=== PATIENT | male | born 1990 | race Caucasian/White ===

== ENCOUNTER 2016-07-30 20:36 | Emergency (ER) | payer BC, OTHER ==
[2016-07-30] MEDS ORDERED: Sodium Chloride 0.9% 2.5 ML Syringe FLUSH PRN ×2 (20:44)
[2016-07-30] MEDS ORDERED: Sodium Chloride 0.9% 10 ML Syringe FLUSH PRN ×2 (20:44)
--- NOTE | 2016-07-30 20:55 | EDM.PDOC ---
ED HISTORY OF PRESENT ILLNESS - General Stated Complaint: CHEST PAIN Time Seen by Provider: 07/30/16 20:40 Source of Information: Reports: Patient History Limitations: Reports: No limitations - History of Present Illness INITIAL COMMENTS - FREE TEXT/NARRATIVE: HISTORY AND PHYSICAL: History of present illness: [] 26-year-old male with a history of thoracic aortic aneurysm treated surgically which he had a family history of sister was also treated similarly, now presents to the emergency department complaining of right-sided pleuritic chest pain onset prior to arrival while exercising. She denies chest pressure or nausea vomiting diaphoresis or shortness of air. He says his pain is reproducible with a deep breath. Right-sided and sharp. He said no productive cough fevers chills sweats or shaking chills patient is not a smoker has no known hypertension cholesterol diabetes or family history of coronary artery disease Review of systems: As per history of present illness and below otherwise all systems reviewed and negative. Past medical history: As per history of present illness and as reviewed below otherwise noncontributory. Surgical history: As per history of present illness and as reviewed below otherwise noncontributory. Social history: No reported history of drug or alcohol abuse. Family history: As per history of present illness and as reviewed below otherwise noncontributory. Physical exam: HEENT: Atraumatic, normocephalic, pupils reactive, negative for conjunctival pallor or scleral icterus, mucous membranes moist, throat clear, neck supple, nontender, trachea midline. Lungs: Clear to auscultation, breath sounds equal bilaterally, chest nontender. Heart: S1S2, regular, negative for clicks, rubs, or JVD. Abdomen: Soft, nondistended, nontender. Negative for masses or hepatosplenomegaly. Negative for costovertebral tenderness. Pelvis: Stable nontender. Genitourinary: Deferred. Rectal: Deferred. Extremities: Atraumatic, negative for cords or calf pain. Neurovascular unremarkable. Neuro: Awake, alert, oriented. Cranial nerves II through XII unremarkable. Cerebellum unremarkable. Motor and sensory unremarkable throughout. Exam nonfocal. Diagnostics: [] Therapeutics: [] Impression: [] Plan: [] Definitive disposition and diagnosis as appropriate pending reevaluation and review of above. - Related Data Allergies/ADRs: Allergies Allergy/AdvReac Type Severity Reaction Status Date / Time No Known Allergies Allergy Verified 07/30/16 20:38 Home Meds: Home Meds . [No Known Home Meds] 11/28/14 [History] Past Medical History Other Cardiovascular History: AAA 2010. Other Respiratory History: childhood asthma - Past Surgical History Other Cardiovascular Surgeries/Procedures: AAA stent 2010. Social & Family History - Tobacco Use Smoking Status *Q: Never Smoker - Recreational Drug Use Recreational Drug Use: No ED ROS GENERAL - Review of Systems Review Of Systems: See Below (Per history of present illness) ED EXAM, GENERAL - Physical Exam Exam: See Below (Per history of present illness) Course - Vital Signs Text/Narrative:: Signs and symptoms consistent with pleuritic chest pain. Well-appearing patient unremarkable vital signs. EKG sinus rhythm at 97 STEMI, unremarkable, interpreted by me. Chest x-ray benign no acute disease interpreted by me, report reviewed, labs including troponin negative. CTA of the chest with normal aorta and pulmonary quinn specifically no evidence of dissection aneurysm or PE. Patient well-appearing asymptomatic from usp through his visit until discharge. A shunt agrees with outpatient followup strict return precautions given Last Recorded V/S: Last Vital Signs Temp 37.1 C 07/31/16 00:20 Pulse 80 07/31/16 00:20 Resp 14 07/31/16 00:20 BP 118/75 07/31/16 00:20 Pulse Ox 95 07/31/16 00:20 - Orders/Labs/Meds Orders: Active Orders 24 hr Category Date Time Status EKG 12 Lead [EKG Documentation Completion] [RC] STAT Care 07/30/16 20:44 Active Peripheral IV Care [RC] . DIRECTED Care 07/30/16 20:44 Active Ang Chest [CT] Stat Exams 07/30/16 20:53 Taken Chest 1V Frontal [CR] Stat Exams 07/30/16 20:44 Taken Peripheral IV Insertion Adult [OM.PC] Stat Oth 07/30/16 20:44 Ordered Saline Lock Insert [OM.PC] Stat Oth 07/30/16 20:44 Ordered Labs: Laboratory Tests 07/30/16 07/30/16 07/30/16 Range/Units 20:50 20:50 21:10 WBC 8.12 (4.0-11.0) K/uL RBC 5.11 (4.50-5.90) M/uL Hgb 15.1 (13.0-17.0) g/dL Hct 44.6 (38.0-50.0) % MCV 87.3 (80.0-98.0) fL MCH 29.5 (27.0-32.0) pg MCHC 33.9 (31.0-37.0) g/dL RDW Std Deviation 40.8 (28.0-62.0) fl RDW Coeff of Joseph 13 (11.0-15.0) % Plt Count 192 (150-400) K/uL MPV 12.20 H (7.40-12.00) fL Neut % (Auto) 54.6 (48.0-80.0) % Lymph % (Auto) 37.6 (16.0-40.0) % Jack % (Auto) 5.8 (0.0-15.0) % Eos % (Auto) 1.8 (0.0-7.0) % Baso % (Auto) 0.2 (0.0-1.5) % Neut # 4.4 (1.4-5.7) K/uL Lymph # 3.1 H (0.6-2.4) K/uL Jack # 0.5 (0.0-0.8) K/uL Eos # 0.2 (0.0-0.7) K/uL Baso # 0.0 (0.0-0.1) K/uL Nucleated RBC % 0.0 /100WBC Nucleated RBCs # 0 K/uL Sodium 138 (136-146) mmol/L Potassium 3.7 (3.5-5.1) mmol/L Chloride 107 (98-110) mmol/L Carbon Dioxide 20 L (21-31) mmol/L BUN 14 (6.0-23.0) mg/dL Creatinine 0.9 (0.6-1.5) mg/dL Est Cr Clr Drug Dosing 144.61 mL/min Estimated GFR (MDRD) > 60.0 ml/min Glucose 145 H (60-110) mg/dL Calcium 9.0 (8.8-10.8) mg/dL Total Bilirubin 0.3 (0.1-1.5) mg/dL AST 24 (5-40) IU/L ALT 28 (8-54) IU/L Alkaline Phosphatase 66 (40-150) Troponin I < 0.10 (0.0-0.29) NG/ML Total Protein 7.0 (6.0-8.0) g/dL Albumin 4.1 (3.5-5.0) g/dL Globulin 2.9 (2.0-3.5) g/dL Albumin/Globulin Ratio 1.4 (1.3-2.8) Meds: Medications Discontinued Medications Generic Name Dose Route Start Last Admin Trade Name Freq PRN Reason Stop Dose Admin Iopamidol 100 ml 07/30/16 22:36 07/30/16 22:36 Isovue-370 (76%) IVPUSH 07/30/16 22:37 100 ml ONETIME STA Administration Sodium Chloride 10 ml 07/30/16 20:44 Saline Flush FLUSH ASDIRECTED PRN Keep Vein Open Sodium Chloride 2.5 ml 07/30/16 20:44 Saline Flush FLUSH ASDIRECTED PRN Keep Vein Open Sodium Chloride 10 ml 07/30/16 20:44 Saline Flush FLUSH ASDIRECTED PRN Keep Vein Open Sodium Chloride 2.5 ml 07/30/16 20:44 Saline Flush FLUSH ASDIRECTED PRN Keep Vein Open Departure - Departure Time of Disposition: 00:29 Disposition: Home, Self-Care 01 Condition: good Clinical Impression: Pleurisy Instructions: Pleurisy, [id number] Referrals: PCP,Román [Primary Care Provider] - Forms: ED Department Discharge Additional Instructions: Your chest pain with breathing earlier today is consistent with pleurisy. This means pain from irritation of the lung lining. Is not threatening but it may be uncomfortable. You can take Motrin or Tylenol or both as needed for discomfort if you experience it again. A full cardiac and lung workup today was unremarkable including chest x-ray EKG and a CT angiogram of your chest. The angiogram was able to visualize your aorta and both lungs and both were normal- appearing. Her labs were normal as well. Follow up with your in one to 2 days and return immediately for new severe or worsening symptoms. - My Orders Last 24 Hours: My Active Orders 07/30/16 20:44 EKG 12 Lead [EKG Documentation Completion] [RC] STAT Peripheral IV Care [RC] . DIRECTED Chest 1V Frontal [CR] Stat Peripheral IV Insertion Adult [OM.PC] Stat Saline Lock Insert [OM.PC] Stat 07/30/16 20:53 Ang Chest [CT] Stat - Assessment/Plan Last 24 Hours: My Active Orders 07/30/16 20:44 EKG 12 Lead [EKG Documentation Completion] [RC] STAT Peripheral IV Care [RC] . DIRECTED Chest 1V Frontal [CR] Stat Peripheral IV Insertion Adult [OM.PC] Stat Saline Lock Insert [OM.PC] Stat 07/30/16 20:53 Ang Chest [CT] Stat
[2016-07-30 21:34] LABS: CHLORIDE,CL 107 mmol/L (98-110); SODIUM,NA 138 mmol/L (136-146)
[2016-07-30] MEDS ORDERED: Iopamidol 755 Mg/ML 100 ML Bottle IVPUSH STA (22:36)
[2016-07-31 02:01] VITALS: BP 118/75
--- NOTE | 2016-07-31 19:48 | CR ---
MEXAM DATE: 07/30/16 PATIENT'S AGE: 26 Patient: MARY CARMEN BETTS Facility: [place], [place] Site . Site : 1990 Study: XRay Chest [id number]/19/2017 9:10:01 PM Ordering Physician: Олег Pineda Final Report: INDICATION: Chest pain TECHNIQUE: Chest 1 view. COMPARISON: 11/28/2014 FINDINGS: Cardiovascular and mediastinum: Heart size and vasculature are normal in caliber and appearance. Mediastinum is within normal limits. Sternotomy wires noted. Lungs and pleural space: Lungs are clear. No sign of infiltrate or mass. No sign of pleural effusion. No pneumothorax. Bones and soft tissues: No significant findings. IMPRESSION: Unremarkable chest. Dictated by Giancarlo Becerril MD @ 07/30/2016 9:12:48 PM Dictated by: Giancarlo Becerril MD @ 07/30/2016 21:12:54 (Electronic Signature) Report Signed by Proxy and Original Signed Document filed in the Medical Record. MTDD
--- NOTE | 2016-07-31 19:52 | CT ---
EXAM DATE: 07/30/16 PATIENT'S AGE: 26 Patient: MARY CARMEN BETTS Facility: [place], [place] Site Site : 1990 Study: CT Chest CHEST/ABDOMEN-07/31/2016 12:14:31 AM Ordering Physician: Олег Pineda Final Report: INDICATION: History of TAA TECHNIQUE: CTA chest and abdomen acquired with IV contrast. COMPARISON: 11/28/2014 FINDINGS: Chest: Cardiovascular structures: Heart size is normal. Thoracic aorta and main pulmonary artery are normal in caliber. Mediastinum and jaret: No mass or adenopathy. Lungs: Clear. Pleura and pericardium: No effusions. Chest wall and axilla: No mass or adenopathy. Bones: Unremarkable for age. Abdomen and Pelvis: Liver: Unremarkable. Spleen: Unremarkable. Pancreas: Unremarkable. Gallbladder and bile ducts: Unremarkable. Kidneys: Unremarkable. Adrenal glands: Unremarkable. GI tract: Unremarkable. Appendix is normal. Vascular structures: Unremarkable. Lymph nodes: Unremarkable. Miscellaneous: Unremarkable. No free air or significant free fluid. Bones: Unremarkable for age. IMPRESSION: No pulmonary embolus. Normal thoracic aorta. No evidence for pneumonia. Grossly normal upper abdomen. Dictated by Giancarlo Becerril MD @ 07/31/2016 12:21:00 AM Dictated by: Giancarlo Becerril MD @ 07/31/2016 00:21:16 (Electronic Signature) MReport Signed by Proxy and Original Signed Document filed in the Medical Record. [id number]
--- NOTE | 2016-08-02 10:09 | CT ---
EXAM DATE: 07/30/16 PATIENT'S AGE: 26 Patient: MARY CARMEN BETTS Facility: [facility] Site Site : 1990 Study: CT-Chest CHEST/ABDOMEN-07/31/2016 12:14:31 AM Ordering Physician: Олег Pineda Final Report: INDICATION: History of TAA TECHNIQUE: CTA chest and abdomen acquired with IV contrast. COMPARISON: 11/28/2014 FINDINGS: Chest: Cardiovascular structures: Heart size is normal. Thoracic aorta and main pulmonary artery are normal in caliber. Mediastinum and jaret: No mass or adenopathy. Lungs: Clear. Pleura and pericardium: No effusions. Chest wall and axilla: No mass or adenopathy. Bones: Unremarkable for age. Abdomen and Pelvis: Liver: Unremarkable. Spleen: Unremarkable. Pancreas: Unremarkable. Gallbladder and bile ducts: Unremarkable. Kidneys: Unremarkable. Adrenal glands: Unremarkable. GI tract: Unremarkable. Appendix is normal. Vascular structures: Unremarkable. Lymph nodes: Unremarkable. Miscellaneous: Unremarkable. No free air or significant free fluid. Bones: Unremarkable for age. IMPRESSION: No pulmonary embolus. Normal thoracic aorta. No evidence for pneumonia. Grossly normal upper abdomen. Dictated by Giancarlo Becerril MD @ 07/31/2016 12:21:00 AM Dictated by: Giancarlo Becerril MD @ 07/31/2016 00:21:16 Signed by: Giancarlo Becerril MD @07/31/2016 12:21:16 AM (Electronic Signature) Report Signed by Proxy and Original Signed Document filed in the Medical Record. [facility]
== END 2016-07-31 00:45 | disposition home or self-care (01) ==
LOC: MW.ED 20:36
DX: R09.1 Pleurisy (principal); Z95.828 Presence of other vascular implants and grafts
CPT/HCPCS: 36415; 71010; 71275; 80053; 84484; 85025; 93005; 99285; Q9967; 74160; 74160-26; 74175; 74175-26; 99284